=== PATIENT | male | born 1955 | race African-American/Black ===

== ENCOUNTER 2019-01-22 01:08 | Emergency (ER) | payer MEDICARE, BC ==
[2019-01-22 01:18] VITALS: RESP 18; TEMP 98.5
[2019-01-22] MEDS ORDERED: LIDOCAINE 1% INJ 10MG/ML (20 ML MDV) SQ ONE (02:01)
[2019-01-22] MEDS ORDERED: DIPH,PERTUS(ACELL)TETVAC-LF 0.5 ML VIAL IM ONE (02:01)
--- NOTE | 2019-01-22 02:16 | XR ---
EXAM: XR Left Hand Complete, 3 or More Views CLINICAL HISTORY: Reason: Pain TECHNIQUE: Frontal, lateral and oblique views of the left hand. COMPARISON: No relevant prior studies available. FINDINGS: Bones/joints: Unremarkable. No acute fracture. No dislocation. Soft tissues: Unremarkable. No radiopaque foreign body. IMPRESSION: Soft tissue injury along the third digit radial margin with no evidence for fracture or subluxation
--- NOTE | 2019-01-22 03:39 | ED ---
Wound/Laceration HPI - General Chief Complaint: Wound/Laceration Stated Complaint: Finger Laceration Time Seen by Provider: 01/22/19 01:40 Source: patient, RN notes reviewed, old records reviewed Mode of arrival: ambulatory Limitations: no limitations - History of Present Illness Initial Comments: Patient is a 63-year-old male who presents to return today with a left 3rd and 2nd finger injury on a table saw. Reports this happened at 1 AM. Patient's tetanus is not up-to-date. He states he has full range of motion of the finger and normal sensation distally. Patient reports that he caused the abrasion over the dorsum of the fourth finger and the distal tip of the middle finger. - Related Data Allergies Allergy/AdvReac Type Severity Reaction Status Date / Time No Known Allergies Allergy Verified 01/22/19 01:17 Review of Systems ROS Statement: Those systems with pertinent positive or pertinent negative responses have been documented in the HPI. ROS Other: All systems not noted in ROS Statement are negative. Past Medical History Past Medical History: Heart Failure, Diabetes Mellitus, Hypertension, Prostate Disorder History of Any Multi-Drug Resistant Organisms: None Reported Past Surgical History: Heart Catheterization Additional Past Surgical History / Comment(s): pacemaker-defib, bowel obstruction, Past Psychological History: No Psychological Hx Reported Smoking Status: Former smoker Past Alcohol Use History: Rare Past Drug Use History: None Reported General Exam - General Exam Comments Initial Comments: 63-year-old male. No distress. Limitations: no limitations Head exam: Present: atraumatic, normocephalic, normal inspection Eye exam: Present: normal appearance, PERRL, EOMI. Absent: scleral icterus, conjunctival injection, periorbital swelling ENT exam: Present: normal exam, mucous membranes moist Neck exam: Present: normal inspection. Absent: tenderness, meningismus, lymphadenopathy Respiratory exam: Present: normal lung sounds bilaterally. Absent: respiratory distress, wheezes, rales, rhonchi, stridor Cardiovascular Exam: Present: regular rate, normal rhythm, normal heart sounds. Absent: systolic murmur, diastolic murmur, rubs, gallop, clicks GI/Abdominal exam: Present: soft, normal bowel sounds. Absent: distended, tenderness, guarding, rebound, rigid Left Forearm Wrist exam: Present: normal inspection, full ROM Hand Wrist exam: Present: normal inspection, laceration (Patient is a small avulsion noted left index finger. Laceration of the left middle finger nover DIP measuring 3 cm. No tendon involvement. Full ROM). Absent: tenderness Neurological exam: Present: alert, oriented X3, CN II-XII intact Psychiatric exam: Present: normal affect, normal mood Course Vital Signs 01/22/19 01/22/19 01:13 03:57 Temperature 98.5 F Pulse Rate 95 84 Respiratory 18 18 Rate Blood Pressure 168/93 162/103 O2 Sat by Pulse 97 95 Oximetry Procedures - Laceration Laceration #1 Site: hand (left 3rd digit) Size (cm): 3 Description: irregular Depth: simple, single layer Anesthetic Used: lidocaine 1% Anesthesia Technique: local infiltration Amount (mls): 4 Pre-repair: wound explored Type of Sutures: nylon Size of Sutures: 5-0 Number of Sutures: 6 Technique: simple, interrupted Patient Tolerated Procedure: well, no complications Laceration #2 Site: hand (index tip of L finger) Size (cm): 1 Description: linear Depth: simple, single layer Pre-repair: wound explored, irrigated extensively Type of Sutures: vicryl Size of Sutures: 6-0 Number of Sutures: 2 Technique: simple, interrupted Patient Tolerated Procedure: well, no complications Medical Decision Making - Medical Decision Making Patient is a 63-year-old male presents with a left finger laceration over the second third digits. Wounds are thoroughly irrigated, and closed with suture. Given updated T that. X-rays negative for fracture. Patient reports as well as results. We'll discharge the Patient. With PCP and discussed return parameters for monitoring for infection. All questions answered. - Radiology Data Radiology results: report reviewed Estrace shows soft tissue injury on the third digit radial margin with no evidence of fracture or subluxation. Disposition Clinical Impression: Finger laceration Disposition: HOME SELF-CARE Condition: Good Instructions (If sedation given, give patient instructions): Care For Your Stitches (ED) Additional Instructions: Please return to the emergency room in 8-10 days to have sutures removed. Please leave wound covered for the first 24-48 hours and then leave open to air after that time. Please use clean soap and water to clean the suture area to prevent scabbing over the top of your sutures. Please watch for any signs of infection which may include but not limited to increased pain, swelling, redness, fever or chills. Please return to the emergency room if any signs of infection do occur. Please return to the emergency room for any other concerns or complications. Is patient prescribed a controlled substance at d/c from ED?: No Referrals: Kam Sequeira MD [Primary Care Provider] - 1-2 days Time of Disposition: 03:39
[2019-01-22 03:59] VITALS: BP 162/103; PULSE 84
== END 2019-01-22 03:57 | disposition home or self-care (01) ==
LOC: EC 01:08
DX: S61.211A Laceration without foreign body of left index finger without damage to nail, initial encounter (principal); S61.213A Laceration without foreign body of left middle finger without damage to nail, initial encounter; S60.415A Abrasion of left ring finger, initial encounter; Z95.818 Presence of other cardiac implants and grafts; Z95.0 Presence of cardiac pacemaker; Z87.891 Personal history of nicotine dependence; Z23 Encounter for immunization; W31.2XXA Contact with powered woodworking and forming machines, initial encounter
CPT/HCPCS: 73130; 90715; 99283; 12002; 90471; J2001

== ENCOUNTER 2020-03-25 18:02 | Emergency (ER) | payer MEDICARE, BC ==
[2020-03-25 18:10] VITALS: BP 147/72; PULSE 65; RESP 18; TEMP 98.2
[2020-03-25] MEDS ORDERED: oxyCODONE-APAP 7.5-325MG 1 EACH TAB PO STA (18:23)
--- NOTE | 2020-03-25 18:27 | ED ---
General Adult HPI - General Chief complaint: Fall Stated complaint: Fall, knee pain, head injury Time Seen by Provider: 03/25/20 18:15 Source: patient Mode of arrival: ambulatory Limitations: no limitations - History of Present Illness Initial comments: Dictation was produced using [employer] dictation software. please excuse any grammatical, word or spelling errors. This patient was cared for during a federal and state declared state of emergency secondary to Covid 19 Chief Complaint: 64-year-old male presents after fall from ladder. History of Present Illness: 64-year-old male he was at the last step, not the ladder when he lost his footing. Patient states he fell landing on default of his left knee. He also landed on his left side. On the way down he struck his head on the wall. Patient denies any loss of consciousness. Of all of his symptoms he reports that his left knee is hurting the most. States that he feels like his left knee is deformed. He injured himself 45 minutes ago. Swelling occurred immediately. The ROS documented in this emergency department record has been reviewed and confirmed by me. Those systems with pertinent positive or negative responses have been documented in the HPI. All other systems are other negative and/or noncontributory. PHYSICAL EXAM: General Impression: Alert and oriented x3, mild acute distress secondary to pain HEENT: Superficial abrasion to the anterior forehead, extra-ocular movements intact, pupils equal and reactive to light bilaterally, mucous membranes moist, no midline neck tenderness Cardiovascular: Heart regular rate and rhythm Chest: Able to complete full sentences, no retractions, no tachypnea Abdomen: abdomen soft, non-tender, non-distended, no organomegaly Musculoskeletal: Pulses present and equal in all extremities, no peripheral edema, bilateral superficial abrasions to the anterior knees Left knee: Left knee effusion, patella is midline, good dorsalis pedis and posterior tibialis pulse Motor: no focal deficits noted Neurological: CN II-XII grossly intact, no focal motor or sensory deficits noted Skin: Intact with no visualized rashes Psych: Normal affect and mood ED course: 64-year-old male presents with knee pain after fall from ladder. Signs upon arrival are within acceptable limits.Left hip is straight shows osteoarthritis of the left hip joint. Knee x-ray shows, possible chip fracture of the anterior patella, elbow x-ray shows no acute processes. Computed tomography scan of the head and C-spine is unremarkable. Case is briefly discussed with Dr. Cuellar soil fertility extension specialist for orthopedic surgery. He is recommending knee immobilizer and follow-up in the office. Patient is given referral to Dr. William however patient reports that he has his own orthopedic surgery that he would like to follow up with. Patient does not want any prescription for controlled narcotics. - Related Data Allergies Allergy/AdvReac Type Severity Reaction Status Date / Time No Known Allergies Allergy Verified 03/25/20 18:06 Review of Systems ROS Statement: Those systems with pertinent positive or pertinent negative responses have been documented in the HPI. ROS Other: All systems not noted in ROS Statement are negative. Past Medical History Past Medical History: Heart Failure, Diabetes Mellitus, Hypertension, Prostate Disorder History of Any Multi-Drug Resistant Organisms: None Reported Past Surgical History: Heart Catheterization Additional Past Surgical History / Comment(s): pacemaker-defib x 4, bowel obstruction, Past Psychological History: No Psychological Hx Reported Smoking Status: Never smoker Past Alcohol Use History: Occasional Past Drug Use History: None Reported General Exam Limitations: no limitations Course Vital Signs 03/25/20 18:07 Temperature 98.2 F Pulse Rate 65 Respiratory 18 Rate Blood Pressure 147/72 O2 Sat by Pulse 97 Oximetry Disposition Clinical Impression: Patella fracture Disposition: HOME SELF-CARE Condition: Good Instructions (If sedation given, give patient instructions): Fall Prevention for Older Adults (ED), Patellar Fracture (ED) Additional Instructions: Follow-up with Dr. Lacy or orthopedic surgeon of your choice for outpatient management of patellar fracture Is patient prescribed a controlled substance at d/c from ED?: No Referrals: Luis Cuellar DO [Medical Doctor] - 1-2 days Time of Disposition: 20:11
--- NOTE | 2020-03-25 18:44 | XR ---
EXAMINATION TYPE: XR Hip Complete LT DATE OF EXAM: 03/25/2020 COMPARISON: NONE HISTORY: Pain TECHNIQUE: 2 views FINDINGS: There is narrowing of hip joint space. There is spurring of the femoral head and acetabulum . I see no fracture nor dislocation. Left sacroiliac joint is intact. IMPRESSION: Osteoarthritis left hip joint. No fracture seen.
--- NOTE | 2020-03-25 18:53 | XR ---
EXAMINATION TYPE: XR knee 4V LT DATE OF EXAM: 03/25/2020 COMPARISON: NONE HISTORY: Knee pain TECHNIQUE: 4 views FINDINGS: There is soft tissue swelling anterior to the patella. There is some deformity of the anter ior surface of the patella on the lateral aspect suggestive of a nondisplaced chip fracture. Joint spaces are normal. There is no sign of joint effusion. IMPRESSION: Possible chip fracture of the anterior patella. Soft tissue swelling.
--- NOTE | 2020-03-25 18:54 | XR ---
EXAMINATION TYPE: XR elbow complete LT DATE OF EXAM: 03/25/2020 COMPARISON: NONE HISTORY: Elbow pain TECHNIQUE: 3 views FINDINGS: I see no fracture nor dislocation. Joint spaces are normal. There is no sign of elbow joint effusion. IMPRESSION: Negative left elbow exam.
[2020-03-25] MEDS ORDERED: ACETAMINOPHEN TAB 325 MG TAB PO STA (18:57)
--- NOTE | 2020-03-25 19:08 | CT ---
EXAMINATION TYPE: CT brain eleni sadler DATE OF EXAM: 03/25/2020 COMPARISON: None HISTORY: Fall, injury to top of head. CT DLP: 1585.8 mGycm Automated exposure control for dose reduction was used. There is cerebral atrophy. There is no mass effect nor midline shift. There is no sign of intracrania l hemorrhage. Calvarium is intact. Cervical vertebra have normal alignment. There is disc space narrowing at C5-6 and C6-7 with spur for mation. There is mild cervical facet arthropathy. Skull base is intact. There is normal aeration of t he temporal bones. Occipital bone is intact. IMPRESSION: Mild cerebral atrophy. No acute intracranial abnormality. Spondylotic changes in the lower cervical spine. No fracture.
--- NOTE | 2020-03-25 20:13 | ED ---
Disposition Clinical Impression: Patella fracture Disposition: HOME SELF-CARE Condition: Good Instructions (If sedation given, give patient instructions): Fall Prevention for Older Adults (ED), Patellar Fracture (ED) Additional Instructions: Follow-up with Dr. Lacy or orthopedic surgeon of your choice for outpatient management of patellar fracture Is patient prescribed a controlled substance at d/c from ED?: No Referrals: Luis Cuellar DO [Medical Doctor] - 1-2 days Time of Disposition: 20:13
== END 2020-03-25 20:30 | disposition home or self-care (01) ==
LOC: EC 18:02
DX: S82.002A Unspecified fracture of left patella, initial encounter for closed fracture (principal); I11.0 Hypertensive heart disease with heart failure; I50.9 Heart failure, unspecified; E11.9 Type 2 diabetes mellitus without complications; M16.12 Unilateral primary osteoarthritis, left hip; Z95.0 Presence of cardiac pacemaker; W11.XXXA Fall on and from ladder, initial encounter
CPT/HCPCS: 70450; 72125; 73502; 99284